=== PATIENT | male | born 1945 | race Caucasian/White ===

== ENCOUNTER → 2019-03-05 | Outpatient (CLI) | payer MEDICARE | END | disposition home or self-care (01) | LOC: CFH 08:08 | PROVIDERS: ATTEND Internal Medicine Cardiovascular Disease | DX: I25.10 Atherosclerotic heart disease of native coronary artery without angina pectoris (principal) | CPT/HCPCS: 78452; 93017; A9502 ==

== ENCOUNTER 2019-11-27 11:58 | Day surgery (SDC) | payer MEDICARE ==
[~2019-11-27] VITALS: Ht 188 cm; Wt 78.0 kg
[2019-11-27] MEDS ORDERED: SODIUM CHLORIDE 0.9% 1,000 ML IV SCH ×2 (12:30→14:00)
[2019-11-27] MEDS ORDERED: PLEASE ENTER HEIGHT AND WEIGHT MC SCH (12:30)
[2019-11-27] MEDS ORDERED: DIPHENHYDRAMINE 50 MG/ML, 1ML IVPush ONE (12:30)
[2019-11-27] MEDS ORDERED: METO25TA91 PO (12:42)
[2019-11-27] MEDS ORDERED: ASPI81TA45 PO (12:42)
[2019-11-27] MEDS ORDERED: ROSU20TA2 PO (12:42)
[2019-11-27] MEDS ORDERED: FENTANYL PF 100 MCG/2ML ONE (12:48)
[2019-11-27] MEDS ORDERED: VERAPAMIL 2.5 MG/ML, 2ML ONE (12:48)
[2019-11-27] MEDS ORDERED: MIDAZOLAM 1 MG/ML, 5ML ONE (12:48)
[2019-11-27 12:49] LABS: BASOPHILS % (AUTO) 1 % (0-1); EOSINOPHILS % (AUTO) 1 % (1-7); LYMPHOCYTES % (AUTO) 8 % (22-44); MEAN CORPUSCULAR HEMOGLOBIN 32.6 pg (27.5-34.5); MEAN CORPUSCULAR HGB CONC 33.8 g/dL (33.2-36.2); MEAN PLATELET VOLUME 9.4 fL (7.4-10.4); MONOCYTES % (AUTO) 7 % (2-9); NEUTROPHILS % (AUTO) 83 % (42-75); PLATELET COUNT 160 x10^3/uL (130-400); RED BLOOD COUNT 4.92 x10^6/uL (4.38-5.82); RED CELL DISTRIBUTION WIDTH 12.9 % (9.4-14.8)
[2019-11-27] MEDS ORDERED: LIDOCAINE-MPF 1%, 5ML ONE (12:49)
[2019-11-27 12:53] LABS: MD NO
[2019-11-27 12:56] LABS: PROTHROMBIN TIME 10.3 Seconds (9.6-11.5)
[2019-11-27 12:57] LABS: ANION GAP 5 mmol/L (5-15); CHLORIDE 106 mmol/L (98-107); CREATININE 1.09 mg/dL (0.7-1.3)
[2019-11-27] MEDS ORDERED: DIPHENHYDRAMINE 50 MG/ML, 1ML ONE (13:03)
[2019-11-27] MEDS ORDERED: METO50TA4 PO (15:30)
== END 2019-11-27 16:20 | disposition home or self-care (01) ==
LOC: CACL 11:58
PROVIDERS: ATTEND Internal Medicine Cardiovascular Disease
DX: I25.119 Atherosclerotic heart disease of native coronary artery with unspecified angina pectoris (principal); I25.84 Coronary atherosclerosis due to calcified coronary lesion; I25.83 Coronary atherosclerosis due to lipid rich plaque; I10 Essential (primary) hypertension; E78.2 Mixed hyperlipidemia; Z79.899 Other long term (current) drug therapy; Z88.0 Allergy status to penicillin
CPT/HCPCS: 36415; 80048; 85025; 85610; 93458; 93571; 93572; 99156; 99157; C1769; C1887; C1894; J1200; J2250; J3010; Q9967

== ENCOUNTER → 2020-06-08 | Outpatient (CLI) | payer MEDICARE ==
[~2020-06-08] MED LIST: ASPI81TA45 PO; METO25TA91 PO; METO50TA4 PO; ROSU20TA2 PO
== END | disposition home or self-care (01) ==
LOC: CVU 12:29
PROVIDERS: ATTEND Internal Medicine Cardiovascular Disease
DX: I08.1 Rheumatic disorders of both mitral and tricuspid valves (principal); I25.810 Atherosclerosis of coronary artery bypass graft(s) without angina pectoris
CPT/HCPCS: 93306; 93356